=== PATIENT | female | born 1955 | race American Indian/Alaskan Native ===

== ENCOUNTER 2017-05-09 15:09 | Emergency (ER) | payer BC ==
[2017-05-09 15:33] VITALS: BP 149/96
[2017-05-09] MEDS ORDERED: INDOCIN PO ONE (17:02)
[2017-05-09] MEDS ORDERED: COLCRYS PO ONE (17:02)
--- NOTE | 2017-05-09 17:23 | XRay Report ---
FINAL REPORT PROCEDURE: XR FOOT 3 LT TECHNIQUE: Three views left foot HISTORY: LEFT FOOT PAIN /SWELLING COMPARISON: No prior studies are available for comparison. FINDINGS: Hallux valgus deformity. Moderate swelling left foot appearing severe distally on top of the foot. Osteopenia. Underlying degenerative changes are evident. Plantar posterior calcaneal spurring. Ankle effusion. IMPRESSION: Soft tissue swelling without definite fracture
--- NOTE | 2017-05-09 17:25 | Emergency Department Report ---
ED General Adult HPI - General Chief complaint: Extremity Injury, Lower Stated complaint: LT FOOT SWOLLEN Time Seen by Provider: 05/09/17 16:45 Source: patient Mode of arrival: Ambulatory Limitations: No Limitations - History of Present Illness Initial comments: Patient comes into the ER today with complaints of left foot pain and swelling for the past one week. Patient denies any injury. Patient states that the pain started in great toe with swelling as well that has progressed into her foot region. Patient notes pain is worse with movement of toes, specifically the great toe, as well as with ambulation and weight bearing. Patient denies any chest pain, shortness of breath, thigh pain, calf pain. Patient denies any personal history of gout but states that her father does have a history of gout. - Related Data Previous Rx's Medication Instructions Recorded Last Taken Type Colchicine [Colcrys] 0.6 mg PO BID #10 tab 05/09/17 Unknown Rx Indomethacin 50 mg PO Q8H #30 capsule 05/09/17 Unknown Rx traMADol [Ultram] 50 mg PO Q6HR PRN #20 tablet 05/09/17 Unknown Rx Allergies Allergy/AdvReac Type Severity Reaction Status Date / Time No Known Allergies Allergy Verified 05/09/17 15:27 ED Review of Systems ROS: Stated complaint: LT FOOT SWOLLEN Other details as noted in HPI Constitutional: denies: chills, fever Eyes: denies: eye pain, eye discharge, vision change ENT: denies: ear pain, throat pain Respiratory: denies: cough, shortness of breath, SOB with exertion, wheezing Cardiovascular: denies: chest pain, palpitations, dyspnea on exertion Endocrine: no symptoms reported Gastrointestinal: denies: abdominal pain, nausea, diarrhea Genitourinary: denies: urgency, dysuria, discharge Musculoskeletal: joint swelling (left foot), arthralgia (left great toe). denies: back pain Skin: denies: rash, lesions Neurological: denies: headache, weakness, numbness, paresthesias, confusion Psychiatric: denies: anxiety, depression Hematological/Lymphatic: denies: easy bleeding, easy bruising ED Past Medical Hx - Past Medical History Hx Hypertension: Yes Hx Diabetes: Yes (PRE DIABETIC) Additional medical history: HIGH CHOLESTROL MEDS - Surgical History Past Surgical History?: No - Social History Smoking Status: Never Smoker Substance Use Type: Alcohol - Medications Home Medications: Home Medications Medication Instructions Recorded Confirmed Last Taken Type Colchicine [Colcrys] 0.6 mg PO BID #10 tab 05/09/17 Unknown Rx Indomethacin 50 mg PO Q8H #30 capsule 05/09/17 Unknown Rx traMADol [Ultram] 50 mg PO Q6HR PRN #20 tablet 05/09/17 Unknown Rx ED Physical Exam - General Limitations: No Limitations General appearance: alert, in no apparent distress - Head Head exam: Present: atraumatic, normocephalic - Eye Eye exam: Present: normal appearance - ENT ENT exam: Present: mucous membranes moist - Neck Neck exam: Present: normal inspection - Respiratory Respiratory exam: Present: normal lung sounds bilaterally. Absent: respiratory distress, wheezes, rales, rhonchi, chest wall tenderness, decreased breath sounds - Cardiovascular Cardiovascular Exam: Present: regular rate, normal rhythm, normal heart sounds. Absent: systolic murmur, diastolic murmur, rubs, gallop - GI/Abdominal GI/Abdominal exam: Present: soft, normal bowel sounds. Absent: distended, tenderness - Extremities Exam Extremities exam: Present: tenderness (tenderness noted to left first MTP joint) , normal capillary refill, joint swelling (left dorsal foot swelling with greatest intensity around first MTP joint.), other (there is no upper leg tenderness or swelling noted on examination. Patient has negative Homans sign.) . Absent: full ROM (Limited range of motion of the left great MTP joint secondary to pain), calf tenderness - Back Exam Back exam: Present: normal inspection - Neurological Exam Neurological exam: Present: alert, oriented X3, CN II-XII intact, reflexes normal. Absent: motor sensory deficit - Psychiatric Psychiatric exam: Present: normal affect, normal mood - Skin Skin exam: Present: warm, dry, intact. Absent: rash, cyanosis, ecchymosis ED Course Vital Signs 05/09/17 15:27 Temperature 98.6 F Pulse Rate 91 H Respiratory 18 Rate Blood Pressure 149/96 O2 Sat by Pulse 100 Oximetry ED Medical Decision Making - Radiology Data Radiology results: image reviewed interpreted by me: X-ray left foot: Degenerative arthritic changes without any obvious acute bone pathology noted. Soft tissue swelling noted. - Medical Decision Making Patient is nontoxic hemodynamic stable. Patient does not have any physical exam signs concerning for DVT, cellulitis, compartment syndrome. I see no findings concerning for any possible insect bite or break in the skin during examination. Clinically I believe patient to be suffering from an attack of gout. Patient does have family history of such. I discussed with patient the options of testing for such versus treatment for such and patient would rather treat for such and return as needed. Patient was given an instructed on use of crutches here in the ER. I have advised patient to limit weightbearing and elevate foot as much as possible to limit any dependent swelling. Patient is in agreement with treatment plan patient is stable for discharge. Critical care attestation.: If time is entered above; I have spent that time in minutes in the direct care of this critically ill patient, excluding procedure time. ED Disposition Clinical Impression: Left foot pain, Family history of gout Disposition: TO HOME OR SELFCARE Is pt being admited?: No Does the pt Need Aspirin: No Condition: Good Instructions: Acute Gouty Arthritis (ED), Crutch Instructions (ED) Prescriptions: Colchicine [Colcrys] 0.6 mg PO BID #10 tab Indomethacin 50 mg PO Q8H #30 capsule traMADol [Ultram] 50 mg PO Q6HR PRN #20 tablet PRN Reason: Pain Referrals: PRIMARY CARE, [Primary Care Provider] - 3-5 Days SIDRA MOY DPM [Staff Physician] - 3-5 Days (Podiatry ) Time of Disposition: 17:38
== END 2017-05-09 17:55 | disposition home or self-care (01) ==
LOC: ED 15:09
DX: M79.672 Pain in left foot (principal); I10 Essential (primary) hypertension; E11.9 Type 2 diabetes mellitus without complications; E78.00 Pure hypercholesterolemia, unspecified

== ENCOUNTER 2017-11-06 11:30 | Outpatient (CLI) | payer BC ==
--- NOTE | 2017-11-06 15:46 | Mammography Report ---
BILATERAL DIGITAL SCREENING MAMMOGRAM with CAD : 11/06/17 11:30:00 CLINICAL: Routine screening. COMPARISON:05/26/16 FINDINGS: The breasts are heterogeneously dense, which may obscure small masses. No mass, architectural distortion or suspicious calcifications. IMPRESSION: No mammographic evidence of malignancy. BI-RADS CATEGORY: 2 -- Benign RECOMMENDATION: Routine mammographic screening in one year. COMMENT: Patient follow-up letters are generated by our [employer] application.
== END 2017-11-06 11:31 | disposition home or self-care (01) ==
LOC: MAMMO 11:30
PROVIDERS: ATTEND Internal Medicine
DX: Z12.31 Encounter for screening mammogram for malignant neoplasm of breast (principal); I10 Essential (primary) hypertension
CPT/HCPCS: 77067

== ENCOUNTER 2018-12-13 07:57 | Outpatient (CLI) | payer BC ==
--- NOTE | 2018-12-13 16:05 | Mammography Report ---
BILATERAL DIGITAL SCREENING MAMMOGRAM with CAD: 12/13/18 07:57:00 CLINICAL: Routine screening. COMPARISON:11/06/17 FINDINGS: The breasts are heterogeneously dense, which may obscure small masses. No mass, architectural distortion or suspicious calcifications. IMPRESSION: No mammographic evidence of malignancy. BI-RADS CATEGORY: 1 - - Negative RECOMMENDATION: Routine mammographic screening in one year. COMMENT: Patient follow-up letters are generated by our [employer] application.
== END 2018-12-13 07:58 | disposition home or self-care (01) ==
LOC: MAMMO 07:57
PROVIDERS: ATTEND Internal Medicine
DX: Z12.31 Encounter for screening mammogram for malignant neoplasm of breast (principal); I10 Essential (primary) hypertension
CPT/HCPCS: 77067

== ENCOUNTER 2020-02-01 21:27 | Emergency (ER) | payer BC, MEDICARE ==
[2020-02-02 01:12] VITALS: BP 164/87
--- NOTE | 2020-02-02 01:46 | Emergency Department Report ---
ED General Adult HPI - General Chief complaint: High BP Stated complaint: HIGH BP Source: patient Mode of arrival: Ambulatory Limitations: No Limitations - History of Present Illness Initial comments: Patient is a 64-year-old -Irish female with a history of hypertension and gouty arthropathy as well as osteoarthritis who presents to the ED with complaint of persistent elevated blood pressure despite taking her regular blood pressure medication lisinopril. Patient states that this is been going on for the last 2 days, and that she has been checking her blood pressure regularly and it appears that it has not changed. Patient states that she came to the ED for evaluation to find out why her blood pressure was elevated. Patient states that she has an appointment with her primary care physician about 9:00 on February 01 but felt that she could not sleep because of significantly elevated blood pressure. Patient denies chest pain, shortness of breath, headache, syncope, palpitations, fever or chills, dizziness, lightheadedness, abdominal pain, nausea and vomiting or diaphoresis. MD Complaint: Elevated BP -: Sudden, days(s) (2) Location: head Radiation: non-radiation Severity scale (0 -10): 0 Consistency: constant Improves with: none Worsens with: none Associated Symptoms: denies other symptoms. denies: confusion, chest pain, coug h, diaphoresis, fever/chills, headaches, loss of appetite, malaise, nausea/vomiting, rash, shortness of breath, syncope, weakness Treatments Prior to Arrival: none - Related Data Previous Rx's Medication Instructions Recorded Last Taken Type Colchicine [Colcrys] 0.6 mg PO BID #10 tab 05/09/17 Unknown Rx Indomethacin 50 mg PO Q8H #30 capsule 05/09/17 Unknown Rx traMADoL [Ultram] 50 mg PO Q6HR PRN #20 tablet 05/09/17 Unknown Rx amLODIPine 10 mg PO DAILY #30 tab 02/02/20 Unknown Rx Allergies Allergy/AdvReac Type Severity Reaction Status Date / Time No Known Allergies Allergy Verified 05/09/17 15:27 ED Review of Systems ROS: Stated complaint: HIGH BP Other details as noted in HPI Constitutional: other (elevated BP). denies: chills, fever Eyes: denies: eye pain, eye discharge, vision change ENT: denies: ear pain, throat pain Respiratory: denies: cough, shortness of breath, wheezing Cardiovascular: denies: chest pain, palpitations Endocrine: no symptoms reported Gastrointestinal: denies: abdominal pain, nausea, diarrhea Genitourinary: denies: urgency, dysuria, discharge Musculoskeletal: denies: back pain, joint swelling, arthralgia Skin: denies: rash, lesions Neurological: denies: headache, weakness, paresthesias Psychiatric: denies: anxiety, depression Hematological/Lymphatic: denies: easy bleeding, easy bruising ED Past Medical Hx - Past Medical History Hx Hypertension: Yes Hx Diabetes: Yes (PRE DIABETIC) Additional medical history: HIGH CHOLESTROL MEDS - Social History Smoking Status: Never Smoker Substance Use Type: Alcohol - Medications Home Medications: Home Medications Medication Instructions Recorded Confirmed Last Taken Type Colchicine [Colcrys] 0.6 mg PO BID #10 tab 05/09/17 Unknown Rx Indomethacin 50 mg PO Q8H #30 capsule 05/09/17 Unknown Rx traMADoL [Ultram] 50 mg PO Q6HR PRN #20 tablet 05/09/17 Unknown Rx amLODIPine 10 mg PO DAILY #30 tab 02/02/20 Unknown Rx ED Physical Exam - General Limitations: No Limitations General appearance: alert, in no apparent distress - Head Head exam: Present: atraumatic, normocephalic, normal inspection - Eye Eye exam: Present: normal appearance, PERRL, EOMI Pupils: Present: normal accommodation - ENT ENT exam: Present: normal exam, normal orophraynx, mucous membranes moist, TM's normal bilaterally, normal external ear exam - Neck Neck exam: Present: normal inspection, full ROM - Respiratory Respiratory exam: Present: normal lung sounds bilaterally. Absent: respiratory distress, wheezes, rales, stridor, chest wall tenderness, accessory muscle use, decreased breath sounds, prolonged expiratory - Cardiovascular Cardiovascular Exam: Present: regular rate, normal rhythm, normal heart sounds. Absent: systolic murmur, diastolic murmur, rubs, gallop - GI/Abdominal GI/Abdominal exam: Present: soft, normal bowel sounds. Absent: tenderness, guarding, rebound, hyperactive bowel sounds, hypoactive bowel sounds, organomegaly - Extremities Exam Extremities exam: Present: normal inspection, full ROM, normal capillary refill - Back Exam Back exam: Present: normal inspection, full ROM. Absent: tenderness, CVA tenderness (R), CVA tenderness (L), muscle spasm - Neurological Exam Neurological exam: Present: alert, oriented X3, CN II-XII intact, normal gait, reflexes normal - Psychiatric Psychiatric exam: Present: normal affect, normal mood - Skin Skin exam: Present: warm, dry, intact, normal color. Absent: rash ED Course Vital Signs 02/01/20 02/02/20 22:00 01:11 Temperature 98.2 F 98.0 F Pulse Rate 77 69 Respiratory 20 17 Rate Blood Pressure 182/90 Blood Pressure 164/87 [Right] O2 Sat by Pulse 97 98 Oximetry ED Medical Decision Making - Medical Decision Making This is a 64-year-old -Irish female with a history of hypertension and gouty arthropathy as well as osteoarthritis who presents to the ED with complaint of persistent elevated blood pressure despite taking her regular blood pressure medication lisinopril. Patient states that this is been going on for the last 2 days, and that she has been checking her blood pressure regularly and it appears that it has not changed. Patient states that she came to the ED for evaluation to find out why her blood pressure was elevated. Patient states that she has an appointment with her primary care physician about 9:00 on February 01 but felt that she could not sleep because of significantly elevated blood pressure. In the ED, patient is alert and oriented x3 and is not in distress. Repeat vital signs showed blood pressure 164/87, oxygen saturation of 98% in room air, respiratory rate of 17, pulse rate of 69 bpm and temperature of 98.0 F. Patient was discharged home with additional amlodipine 10 mg p.o. x1 daily and advised to follow-up with her primary care physician as previously s cheduled. Patient was advised to return to the ED immediately if symptoms get worse. - Differential Diagnosis Hypertension; Headache; Anxiety Critical care attestation.: If time is entered above; I have spent that time in minutes in the direct care of this critically ill patient, excluding procedure time. ED Disposition Clinical Impression: Uncontrolled stage 2 hypertension, Anxiety as acute reaction to exceptional stress Disposition: DC-01 TO HOME OR SELFCARE Is pt being admited?: No Does the pt Need Aspirin: No Condition: Stable Instructions: Hypertension (ED) Additional Instructions: Take your regular medications for blood pressure, drink plenty of fluids and follow-up with your primary care physician as scheduled today promptly. Return to the ED immediately if symptoms get worse. Prescriptions: amLODIPine 10 mg PO DAILY #30 tab Referrals: PRANAY GARCIA MD [Primary Care Provider] - 24 Hours Time of Disposition: 01:42 Print Language: IRANIAN
== END 2020-02-02 01:55 | disposition home or self-care (01) ==
LOC: ED 21:27
DX: F41.1 Generalized anxiety disorder (principal); F43.0 Acute stress reaction; I10 Essential (primary) hypertension; M10.9 Gout, unspecified; M19.90 Unspecified osteoarthritis, unspecified site; E11.9 Type 2 diabetes mellitus without complications; E78.00 Pure hypercholesterolemia, unspecified; Z79.899 Other long term (current) drug therapy
CPT/HCPCS: 99282

== ENCOUNTER 2020-12-28 07:35 | Outpatient (CLI) | payer MEDICARE ==
--- NOTE | 2020-12-28 09:05 | Mammography Report ---
DIGITAL SCREENING MAMMOGRAM WITH CAD, 12/28/2020 INDICATION: Routine screening mammography. TECHNIQUE: Digital bilateral 2D mammography was obtained in the craniocaudal and mediolateral obliq ue projections. This examination was interpreted with the benefit of Computer-Aided Detection analysi s. COMPARISON: 12/13/2018. FINDINGS: Breast Density: There are scattered areas of fibroglandular density. There is no evidence of dominant mass, suspicious calcifications or architectural distortion in eithe r breast. IMPRESSION: Follow up recommendation: Routine yearly BI-RADS Category 1: Negative. A "normal" or negative report should not discourage follow up or biopsy of a clinically significant f inding. A written summary of these findings will be mailed to the patient. The patient will be entered into a mammography reporting system which will generate a reminder letter for the patient's next appointmen t at the appropriate interval. The [employer] recommends yearly mammograms starting at age 40 and continuing as l beto as a woman is in good health. Breast MRI is recommended for women with an approximate 20-25% or greater lifetime risk of breast cancer, including women with a strong family history of breast or ova massimo cancer or who have been treated for Hodgkin's disease. Signer Name: Familia Daniel MD Signed: 12/28/2020 9:00 AM Workstation Name: [email or web address]
== END 2020-12-28 07:36 | disposition home or self-care (01) ==
LOC: MAMMO 07:35
PROVIDERS: ATTEND Internal Medicine
DX: Z12.31 Encounter for screening mammogram for malignant neoplasm of breast (principal)
CPT/HCPCS: 77067

== ENCOUNTER 2022-02-10 09:00 | Outpatient (CLI) | payer MEDICARE ==
--- NOTE | 2022-02-11 15:41 | Mammography Report ---
DIGITAL SCREENING MAMMOGRAM WITH CAD, 02/10/2022 CLINICAL INFORMATION / INDICATION: Routine screening TECHNIQUE: Digital bilateral 2D mammography was obtained in the craniocaudal and mediolateral obliqu e projections. This examination was interpreted with the benefit of Computer-Aided Detection analysis . COMPARISON: 12/28/2020 FINDINGS: Breast Density: There are scattered areas of fibroglandular density. No dominant mass, suspicious calcifications, or architectural distortion in either breast. Minimal nodularity is stable. IMPRESSION: No mammographic evidence of malignancy. Follow up recommendation: Routine yearly BI-RADS Category 2: BENIGN. A "normal" or negative report should not discourage follow up or biopsy of a clinically significant f inding. A written summary of these findings will be mailed to the patient. The patient will be entered into a mammography reporting system which will generate a reminder letter for the patient's next appointmen t at the appropriate interval. The [employer] recommends yearly mammograms starting at age 40 and continuing as l beto as a woman is in good health. Breast MRI is recommended for women with an approximate 20-25% or greater lifetime risk of breast cancer, including women with a strong family history of breast or ova massimo cancer or who have been treated for Hodgkin's disease. Signer Name: Rivas Irwin MD Signed: 02/11/2022 3:37 PM Workstation Name: [email or web address]
== END 2022-02-10 09:01 | disposition home or self-care (01) ==
LOC: MAMMO 09:00
PROVIDERS: ATTEND Internal Medicine
DX: Z12.31 Encounter for screening mammogram for malignant neoplasm of breast (principal)
CPT/HCPCS: 77067